=== PATIENT | male | born 1940 | race African-American/Black ===

== ENCOUNTER 2016-04-01 20:15 | Emergency (ER) | payer MEDICARE, OTHER ==
--- NOTE | 2016-04-01 20:48 | ER Document Report ---
ED Medical Screen (RME) - General Stated Complaint: BLOOD PRESSURE PROBLEM Time seen by provider: 20:47 Mode of Arrival: Ambulatory Information source: Patient Notes: 75-year-old male came to the emergency room to get his blood pressure and pulse checked. He took his blood pressure at home and it was 160/80 and his pulse was 111. 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 His no chest pain or shortness of breath. No abdominal pain. He does not feel sick. He also wants a flu shot while he is here. [facility] - Related Data Allergies/Adverse Reactions: No Known Allergies Allergy (Verified 03/05/13 09:23) Past Medical History - Past Medical History Cardiac Medical History: Reports: Hx Hypertension Endocrine Medical History: Reports: Hx Diabetes Mellitus Type 2 Renal/ Medical History: Reports: Hx Benign Prostatic Hyperplasia Musculoskeltal Medical History: Reports Hx Arthritis Psychiatric Medical History: Reports: Hx Depression Past Surgical History: Reports: Hx Cholecystectomy, Hx Orthopedic Surgery - right elbow, left knee - Immunizations Hx Diphtheria, Pertussis, Tetanus Vaccination: Yes
[2016-04-01] MEDS ORDERED: INFLUENZA ADLT QUAD (36MOS+) 2016-17 VAC 0.5 ML SYR IM ONE (22:41)
--- NOTE | 2016-04-01 22:43 | ER Document Report ---
ED General - General Chief Complaint: Blood Pressure Problem Stated Complaint: BLOOD PRESSURE PROBLEM Mode of Arrival: Ambulatory Notes: Patient is 75-year-old male presents with complaints of high blood pressure and fast heart rate. He does have a history of a sense be atrial flutter atrophia. Patient is followed by heart Dr. Britton. He says he was told the past says his heart rate is ever over 100 that he should see a doctor immediately. Tonight patient was checking his blood pressure routinely has usually does. His blood pressure is a bit elevated diagnosis heart rate was reading at 111 on his blood pressure cuff. He currently feels well. He says he does not feel like his heart is racing. He never had any headache or chest pain. Since being in the ER his blood pressure is recurrent to near normal levels and his heart rate has been in the 60s or 70s. The highest his heart rate was here was in triage and it was in the 90s. Patient looks well and has no further complaints. He does request a flu shot. He's had a flu shot in the past and never had any complications with it. No recent fevers or infections. TRAVEL OUTSIDE OF THE [place] IN LAST 30 DAYS: No - Related Data Allergies/Adverse Reactions: No Known Allergies Allergy (Verified 03/05/13 09:23) Past Medical History - General Information source: Patient - Social History Smoking Status: Unknown if Ever Smoked Frequency of alcohol use: None Drug Abuse: None Family History: Reviewed & Not Pertinent Patient has suicidal ideation: No Patient has homicidal ideation: No - Past Medical History Cardiac Medical History: Reports: Hx Hypertension Endocrine Medical History: Reports: Hx Diabetes Mellitus Type 2 Renal/ Medical History: Reports: Hx Benign Prostatic Hyperplasia. Denies: Hx Peritoneal Dialysis Musculoskeltal Medical History: Reports Hx Arthritis Psychiatric Medical History: Reports: Hx Depression Past Surgical History: Reports: Hx Cholecystectomy, Hx Orthopedic Surgery - right elbow, left knee - Immunizations Hx Diphtheria, Pertussis, Tetanus Vaccination: Yes Hx Pneumococcal Vaccination: 01/10/11 Review of Systems - Review of Systems Notes: My Normal Review Basic REVIEW OF SYSTEMS: CONSTITUTIONAL : Denies fever, chills, or sweats. Denies recent illness. EENT: Denies eye, ear, throat, or mouth pain or symptoms. Denies nasal or sinus congestion. CARDIOVASCULAR: Denies chest pain. RESPIRATORY: Denies cough, cold, or chest congestion. Denies shortness of breath, difficulty breathing, or wheezing. GASTROINTESTINAL: Denies abdominal pain. Denies nausea, vomiting, or diarrhea. Denies constipation. MUSCULOSKELETAL: Denies neck or back pain or joint pain or swelling. SKIN: Denies rash or skin lesions. NEUROLOGICAL: Denies altered mental status or loss of consciousness. Denies headache. Denies weakness or paralysis or loss of use of either side. Denies problems with gait or speech. Denies sensory or motor loss. ALL OTHER SYSTEMS REVIEWED AND NEGATIVE. Physical Exam - Vital signs Vitals: Temp Pulse Resp BP Pulse Ox 98.1 F 97 16 150/61 H 99 04/01/16 20:35 04/01/16 20:35 04/01/16 20:35 04/01/16 20:35 04/01/16 20:35 - Notes Notes: General Appearance: Well nourished, alert, cooperative, no acute distress, no obvious discomfort. Vitals: reviewed, See vital signs table. Head: no swelling or tenderness to the head Eyes: PERRL, EOMI, Conjuctiva clear Mouth: No decreasd moisture Neck: Supple, no neck tenderness, No thyromegaly Lungs: No wheezing, No rales, No rhonci, No accessory muscle use, good air exchange bilaterally. Heart: Normal rate, Regular rythm, No murmur, no rub Abdomen: Normal BS, soft, No rigidity, No abdominal tenderness, No guarding, no rebound, no abdominal masses, no organomegaly Extremities: strength 5/5 in all extremities, good pulses in all extremities, no swelling or tenderness in the extremities, no edema. Skin: warm, dry, appropriate color, no rash Neuro: speech clear, oriented x 3, normal affect, responds appropriately to questions. Cranial nerves II through XII are intact. Distal sensation intact. Patient moves all extremities without difficulty. Course - Vital Signs Vital signs: Temp Pulse Resp BP Pulse Ox 97.8 F 84 18 146/63 H 96 04/01/16 23:20 04/01/16 23:20 04/01/16 23:20 04/01/16 23:20 04/01/16 23:20 - Transfer of Care Notes: 04/02/16 05:57 Patient will be discharged home. Patient was given a flu shot. Patient has normal vital signs at this time. I feel he is safe to be discharged home. He had no concerning symptoms associated with the high blood pressure. Only reason why he noticed high blood pressure respiratory was that he was doing his routine check of his blood pressure home. He never had any chest pain. He never had a headache. I feel he is safe to be discharged home. I encouraged him to return to the ER if has palpitations, chest pain, or feels unwell. Patient agrees with plan and will be discharged home. Dictation of this chart was performed using voice recognition software; therefore, there may be some unintended grammatical errors. Discharge - Discharge Clinical Impression: Hypertension Qualifiers: Hypertension type: unspecified secondary hypertension Qualified Code(s): I15.9 - Secondary hypertension, unspecified Condition: Good Disposition: HOME, SELF-CARE Additional Instructions: HIGH BLOOD PRESSURE, NOT TREAT: When your blood pressure was taken today it was slightly elevated. Sometimes, stress or illness causes a temporary elevation of your blood pressure. We suggest that you get your blood pressure measured again during the next few days to see if this elevated blood pressure is more than a temporary abnormality. If your blood pressure is greater than 150/90 on each occasion, you must have treatment. Some simple things you can do to help are: If you have blood pressure medicine but aren't using it regularly, start taking it again. Get some aerobic exercise for at least 20 minutes on a daily basis. (See your doctor before beginning a new exercise program.) Eat a low-fat diet. Lose excess weight. Avoid salty foods and avoid adding salt to any of the foods you eat. Avoid diet pills, decongestants, "energizing" herbs, and other medicines that elevate blood pressure. If left untreated, hypertension greatly enhances your risk for developing heart disease and strokes. Please don't ignore this problem. FOLLOW-UP CARE: If you have been referred to a physician for follow-up care, call the physician s office for an appointment as you were instructed or within the next two days. If you experience worsening or a significant change in your symptoms, notify the physician immediately or return to the Emergency Department at any time for re-evaluation. Please return to ER immediately if you have a fast heart rate, chest pain, headache, fevers, vomiting, or feel weak, or feel unwell.
[2016-04-01 23:47] VITALS: BP 146/63
== END 2016-04-01 23:20 | disposition home or self-care (01) ==
LOC: ER 20:15
DX: R03.0 Elevated blood-pressure reading, without diagnosis of hypertension (principal); Z23 Encounter for immunization; I10 Essential (primary) hypertension; E11.9 Type 2 diabetes mellitus without complications; Z90.49 Acquired absence of other specified parts of digestive tract
CPT/HCPCS: 99283; 90686; G0008; 90471

== ENCOUNTER 2016-08-23 09:50 | Day surgery (SDC) | payer MEDICARE, OTHER ==
[~2016-08-23 09:50] MED LIST: DIPHENHYDRAMINE HCL 50 MG/ML VIAL ONE; EPINEPHRINE INJ 1 MG/10 ML DISP.SYRIN ONE; FLUMAZENIL INJ 0.5 MG/5 ML VIAL IV ONE; GLUCAGON,HUMAN RECOMB 1 MG INJ ONE; NALOXONE HCL INJ/PF 0.4 MG/1 ML SDV ONE; ONDANSETRON HCL INJ/PF 4 MG/2 ML SDV ONE
[2016-08-23] MEDS: MIDAZOLAM 2 MG/2 ML INJ ONE ×2 (10:44→10:48)
[2016-08-23] MEDS: FENTANYL CITRATE INJ/PF 100 MCG/2 ML AMPUL ONE ×2 (10:46→11:05)
--- NOTE | 2016-08-23 11:17 | Operative Report ---
Operative Report DATE OF SURGERY: 08/23/16 Operative Report: The risks, benefits and alternatives of the procedure including risks of bleeding, perforation requiring surgery are explained to the patient detail and informed consent was obtained. Patient was taken back to the endoscopy suite and placed in the left, lateral decubital position. Timeout was called. Conscious sedation medications are provided. Olympus videoscope was inserted into the patient's rectum. It is carefully guided all the way to the cecum. Photodocumentation was obtained. Prep was poor. It is uncertain if patient actually drank any prep. The scope was then sequentially pulled back via the rest segments of the colon including the ascending colon, hepatic flexure, transverse colon, splenic flexure, descending colon and finding to the rectosigmoid portions of the colon. Retroflexion maneuver was performed. The risks benefits and alternatives of the procedure explained to the patient in detail and informed consent is obtained. A GIF Olympus video scope was inserted into the patient's mouth and hypopharynx, the esophagus is identified intubated and insufflated, the scope was then advanced through the esophagus stomach and duodenum ,retroflexion maneuver is done, the esophagus stomach and first and second portions of the duodenum examined PREOPERATIVE DIAGNOSIS: Abdominal distention. Colorectal cancer screening. Dyspepsia POSTOPERATIVE DIAGNOSIS: Poor overall prep. Diverticulosis. Small colon polyp was removed via biopsy forceps. Internal hemorrhoids. Gastritis, duodenitis. Hiatal hernia. Biopsy obtained to rule out Helicobacter pylori OPERATION: Colonoscopy with biopsy. EGD with biopsy SURGEON: TOM WALKER ANESTHESIA: Moderate Sedation - 100 mics of fentanyl, 4 mg of Versed. Conscious sedation monitoring time 30 minutes. TISSUE REMOVED OR ALTERED: Colon polyp is removed. Gastric mucosal specimen obtained to rule out Helicobacter pylori COMPLICATIONS: None. ESTIMATED BLOOD LOSS: None. INTRAOPERATIVE FINDINGS: As described above. PROCEDURE: Patient tolerated procedure well. No immediate postprocedure complications are noted. Patient discharged in good condition Discharge date 08/23/2016. Discharge diet: Regular. Discharge activity: Regular. 2-3 week follow-up to discuss findings. 5 year surveillance colonoscopy. We will wait on biopsies. Patient is instructed to call the office or proceed to the emergency room should there be any further problems or questions.
[2016-08-23 12:17] VITALS: BP 150/65
== END 2016-08-23 12:20 | disposition home or self-care (01) ==
LOC: END 09:50
PROVIDERS: ATTEND Internal Medicine Gastroenterology
PROC: 0DB68ZX Excision of Stomach, Via Natural or Artificial Opening Endoscopic, Diagnostic (ICD-10-PCS; principal; 2016-08-23 10:00)
PROC: 0DBN8ZX Excision of Sigmoid Colon, Via Natural or Artificial Opening Endoscopic, Diagnostic (ICD-10-PCS; 2016-08-23 10:00)
DX: D64.9 Anemia, unspecified (principal); E78.00 Pure hypercholesterolemia, unspecified; I10 Essential (primary) hypertension; E11.9 Type 2 diabetes mellitus without complications; E78.5 Hyperlipidemia, unspecified; M19.90 Unspecified osteoarthritis, unspecified site; K57.30 Diverticulosis of large intestine without perforation or abscess without bleeding; K64.8 Other hemorrhoids; K44.9 Diaphragmatic hernia without obstruction or gangrene; K29.80 Duodenitis without bleeding; K63.5 Polyp of colon; Z87.891 Personal history of nicotine dependence; Z79.82 Long term (current) use of aspirin; Z79.899 Other long term (current) drug therapy; Z79.84 Long term (current) use of oral hypoglycemic drugs
CPT/HCPCS: 43239; 45380; 82962; 88305 ×2; J2250; J3010; J0171; J1200; J1610; J2310; J2405; J3490

== ENCOUNTER 2017-07-27 15:13 | Emergency (ER) | payer MEDICARE, OTHER ==
[2017-07-27 15:25] VITALS: BP 139/61
--- NOTE | 2017-07-27 15:55 | ER Document Report ---
ED Medical Screen (RME) - General Chief Complaint: Abdominal Pain Stated Complaint: STOMACH PAIN Time Seen by Provider: 07/27/17 15:51 Notes: RAPID MEDICAL EVALUATION DISCLOSURE I have seen this patient as part of a Rapid Medical Evaluation and, if applicable, placed any initially appropriate orders. The patient will be seen and fully evaluated, including a full history and physical exam, by a provider ( in Main ED or Fast Track) when a room becomes available. 76-year-old male here with several weeks now of right-sided abdominal pain intermittent with mild lightheadedness. He denies nausea vomiting but has had some softer than usual stools. He has not tried anything for the symptoms. He went to the urgent care across the street today and they told him to come here. Denies any other symptoms. EXAM No abdominal TTP TRAVEL OUTSIDE OF THE [place] IN LAST 30 DAYS: No - Related Data Allergies/Adverse Reactions: No Known Allergies Allergy (Verified 07/27/17 15:19) Past Medical History - Past Medical History Cardiac Medical History: Reports: Hx Coronary Artery Disease, Hx Hypertension Denies: Hx Heart Attack Pulmonary Medical History: Denies: Hx Asthma, Hx Bronchitis, Hx Pneumonia Neurological Medical History: Denies: Hx Cerebrovascular Accident, Hx Seizures Endocrine Medical History: Reports: Hx Diabetes Mellitus Type 2 Renal/ Medical History: Reports: Hx Benign Prostatic Hyperplasia. Denies: Hx Peritoneal Dialysis Musculoskeltal Medical History: Reports Hx Arthritis Psychiatric Medical History: Reports: Hx Depression Past Surgical History: Reports: Hx Cholecystectomy, Hx Orthopedic Surgery - right elbow, left knee - Immunizations Hx Diphtheria, Pertussis, Tetanus Vaccination: Yes Physical Exam - Vital signs Vitals: Temp Pulse Resp BP Pulse Ox 98.3 F 78 16 145/60 H 97 07/27/17 15:20 07/27/17 15:20 07/27/17 15:20 07/27/17 15:20 07/27/17 15:20 Course - Vital Signs Vital signs: Temp Pulse Resp BP Pulse Ox 98.3 F 78 16 139/61 H 97 07/27/17 15:20 07/27/17 15:20 07/27/17 15:20 07/27/17 15:24 07/27/17 15:20
[2017-07-27 16:26] LABS: ABSOLUTE EOSINOPHILS # (AUTO) 0.1 10^3/uL (0.0-0.6); ABSOLUTE LYMPHOCYTES (AUTO) 1.4 10^3/uL (0.5-4.7); ABSOLUTE MONOCYTES (AUTO) 0.4 10^3/uL (0.1-1.4); ABSOLUTE NEUT (AUTO) 2.1 10^3/uL (1.7-8.2); EOSINOPHILS % (AUTO) 1.5 % (0-6); HEMATOCRIT 39.6 % (37.9-51.0); HEMOGLOBIN 13.6 g/dL (13.5-17.0); LYMPHOCYTES % (AUTO) 36.6 % (13-45); MEAN CORPUSCULAR HEMOGLOBIN 29.9 pg (27.0-33.4); MEAN CORPUSCULAR HGB CONC 34.4 g/dL (32.0-36.0); MEAN CORPUSCULAR VOLUME 87 fl (80-97); PLATELET COUNT 205 10^3/uL (150-450); RED BLOOD COUNT 4.56 10^6/uL (4.35-5.55); RED CELL DISTRIBUTION WIDTH 14.6 % (11.5-14.0); SEGMENTED NEUTROPHILS % (AUTO) 51.9 % (42-78); TOTAL CELLS COUNTED % (AUTO) 100 %
[2017-07-27 16:31] LABS: APPEARANCE,URINE CLOUDY; BILIRUBIN,URINE NEGATIVE (NEGATIVE); GLUCOSE, URINE NEGATIVE (NEGATIVE); KETONES,URINE NEGATIVE (NEGATIVE); LEUKOCYTE ESTERASE,URINE NEGATIVE (NEGATIVE); NITRITE,URINE NEGATIVE (NEGATIVE); PROTEIN,URINE NEGATIVE (NEGATIVE); URINE SPECIFIC GRAVITY 1.006; UROBILINOGEN,URINE NEGATIVE mg/dL (<2.0)
[2017-07-27 16:34] LABS: COLOR,URINE YELLOW
[2017-07-27 16:48] LABS: ALANINE AMINOTRANSFERASE 33 U/L (21-72); ALBUMIN 4.8 g/dL (3.5-5.0); ALKALINE PHOSPHATASE 56 U/L (38-126); ANION GAP 15 (5-19); ASPARTATE AMINO TRANSFERASE 30 U/L (17-59); BILIRUBIN,DIRECT 0.3 mg/dL (0.0-0.4); BILIRUBIN,TOTAL 0.5 mg/dL (0.2-1.3); BLOOD UREA NITROGEN 18 mg/dL (7-20); CALCIUM 10.8 mg/dL (8.4-10.2); CARBON DIOXIDE 25 mmol/L (22-30); CHLORIDE 104 mmol/L (98-107); GLUCOSE 122 mg/dL (75-110); POTASSIUM 4.5 mmol/L (3.6-5.0); SODIUM 143.9 mmol/L (137-145); TOTAL PROTEIN 7.7 g/dL (6.3-8.2)
--- NOTE | 2017-07-27 18:17 | RADIOLOGY REPORT (SQ) ---
EXAM DESCRIPTION: CT ABD/PELVIS NO ORAL OR IV COMPLETED DATE/TIME: 07/27/2017 5:54 pm REASON FOR STUDY: ruq pain, right flank pain COMPARISON: None. TECHNIQUE: CT scan of the abdomen and pelvis performed without intravenous or oral contrast. Images reviewed with lung, soft tissue, and bone windows. Reconstructed coronal and sagittal MPR images revi ewed. All images stored on PACS. All CT scanners at this facility use dose modulation, iterative reconstruction, and/or weight based d osing when appropriate to reduce radiation dose to as low as reasonably achievable (ALARA). [facility]: Dose Right [facility]: CareDose [facility]: Dose Right [facility]: Teradose 4D [facility]: BuyPlayWin RADIATION DOSE: CT Rad equipment meets quality standard of care and radiation dose reduction techniq ues were employed. CTDIvol: 8.6 mGy. DLP: 455 mGy-cm.mGy. LIMITATIONS: None. FINDINGS: LOWER CHEST: No significant findings. No nodules or infiltrates. NON-CONTRASTED LIVER, SPLEEN, ADRENALS: Evaluation limited by lack of IV contrast. No identified sign ificant masses. PANCREAS: No masses. No peripancreatic inflammatory changes. GALLBLADDER: Surgically absent. RIGHT KIDNEY AND URETER: No suspicious masses. Assessment limited by lack of IV contrast. No signif icant calcifications. No hydronephrosis or hydroureter. LEFT KIDNEY AND URETER: No suspicious masses. Assessment limited by lack of IV contrast. No signifi cant calcifications. No hydronephrosis or hydroureter. AORTA AND RETROPERITONEUM: Vascular calcifications. No aneurysm. No retroperitoneal masses or adenop athy. BOWEL AND PERITONEAL CAVITY: Moderate fecal retention. No obvious masses or inflammatory changes. No free fluid. APPENDIX: Normal. PELVIS, BLADDER, AND ABDOMINAL WALL:No abnormal masses. No free fluid. Incompletely distended bladde r demonstrates circumferential bladder wall thickening. Enlarged prostate. BONES: Degenerative change without fracture or suspicious osseous lesion. OTHER: No other significant finding. IMPRESSION: NO DEFINITE URINARY TRACT CALCULI. NO SIGNIFICANT HYDRONEPHROSIS. CIRCUMFERENTIAL BLADDER WALL THICKENING COULD BE SECONDARY TO INCOMPLETE DISTENTION OR CYSTITIS. COR RELATE WITH URINALYSIS. MODERATE FECAL RETENTION. ADDITIONAL CHRONIC CHANGES ABOVE. COMMENT: Quality ID # [id number]: Final reports with documentation of one or more dose reduction techniques (e.g., Automated exposure control, adjustment of the mA and/or kV according to patient size, use of iterative reconstruction technique) TECHNICAL DOCUMENTATION: JOB ID: [id number] [employer]- All Rights Reserved Reading location - IP/workstation name: [email or web address]
--- NOTE | 2017-07-27 18:48 | ER Document Report ---
ED GI/ - General Chief Complaint: Abdominal Pain Stated Complaint: STOMACH PAIN Time Seen by Provider: 07/27/17 15:51 Mode of Arrival: Ambulatory Information source: Patient Notes: Pt is a 76 year old male who presents to the ER today for right side pain x 1 week. He states the pain comes and goes but does not radiate. Pt denies any nausea/vomiting, diarrhea, fever, chills, dysuria, hematuria, injury, lifting of heavy objects, history of kidney stones. His last bowel movement was 3 days ago and normal. TRAVEL OUTSIDE OF THE [place] IN LAST 30 DAYS: No - Related Data Allergies/Adverse Reactions: No Known Allergies Allergy (Verified 07/27/17 15:19) Past Medical History - General Information source: Patient - Social History Smoking Status: Former Smoker Chew tobacco use (# tins/day): No Frequency of alcohol use: Rare Drug Abuse: None Family History: Reviewed & Not Pertinent Patient has suicidal ideation: No Patient has homicidal ideation: No - Past Medical History Cardiac Medical History: Reports: Hx Coronary Artery Disease, Hx Hypertension Denies: Hx Heart Attack Pulmonary Medical History: Denies: Hx Asthma, Hx Bronchitis, Hx Pneumonia Neurological Medical History: Denies: Hx Cerebrovascular Accident, Hx Seizures Endocrine Medical History: Reports: Hx Diabetes Mellitus Type 2 Renal/ Medical History: Reports: Hx Benign Prostatic Hyperplasia. Denies: Hx Peritoneal Dialysis Musculoskeltal Medical History: Reports Hx Arthritis Psychiatric Medical History: Reports: Hx Depression Past Surgical History: Reports: Hx Cholecystectomy, Hx Orthopedic Surgery - right elbow, left knee - Immunizations Hx Diphtheria, Pertussis, Tetanus Vaccination: Yes Hx Pneumococcal Vaccination: 01/10/11 Review of Systems - Review of Systems Constitutional: No symptoms reported EENT: No symptoms reported Cardiovascular: No symptoms reported Respiratory: No symptoms reported Gastrointestinal: No symptoms reported Genitourinary: No symptoms reported Male Genitourinary: No symptoms reported Musculoskeletal: See HPI Skin: No symptoms reported Hematologic/Lymphatic: No symptoms reported Neurological/Psychological: No symptoms reported Physical Exam - Vital signs Vitals: Temp Pulse Resp BP Pulse Ox 98.3 F 78 16 145/60 H 97 07/27/17 15:20 07/27/17 15:20 07/27/17 15:20 07/27/17 15:20 07/27/17 15:20 - Notes Notes: PHYSICAL EXAMINATION: GENERAL: Well-appearing, smiling, and in no acute distress. HEAD: Atraumatic, normocephalic. EYES: Pupils equal round and reactive to light, extraocular movements intact, sclera anicteric, conjunctiva are normal. NECK: Normal range of motion, supple without lymphadenopathy LUNGS: CTAB and equal. No wheezes rales or rhonchi. HEART: Regular rate and rhythm without murmurs ABDOMEN: Soft, no tenderness. No guarding, no rebound BACK: no vertebral tenderness, normal ROM GI/: no CVA tenderness EXTREMITIES: Normal range of motion, no pitting edema. No cyanosis. NEUROLOGICAL: Cranial nerves grossly intact. Normal sensory/motor exams. PSYCH: Normal mood, normal affect. SKIN: Warm, Dry, normal turgor, no rashes or lesions noted Course - Re-evaluation Re-evalutation: 07/27/17 22:17 Pt is pacing room ready to leave when I walk in asking "when can I leave so I can get some food, I'm hungry!" He is in no distress, does not appear to be in pain. labwork unremarkable, no UTI, no blood in urine, CT abd/pelvis w/o contrast negative for any acute pathology except constipation. I will treat pt with miralax and have him follow up with his pcp. - Vital Signs Vital signs: Temp Pulse Resp BP Pulse Ox 98.3 F 78 16 139/61 H 97 07/27/17 15:20 07/27/17 15:20 07/27/17 15:20 07/27/17 15:24 07/27/17 15:20 - Laboratory Result Diagrams: 07/27/17 16:03 07/27/17 16:03 Laboratory results interpreted by me: 07/27/17 07/27/17 07/27/17 16:03 16:03 16:03 RDW 14.6 H Glucose 122 H Calcium 10.8 H Urine Ascorbic Acid 40 H Discharge - Discharge Clinical Impression: Constipation Qualifiers: Constipation type: unspecified constipation type Qualified Code(s): K59.00 - Constipation, unspecified Condition: Stable Disposition: HOME, SELF-CARE Additional Instructions: Return immediately for any new or worsening symptoms. Follow up with primary care provider, call tomorrow to make followup appointment. Prescriptions: Polyethylene Glycol 3350 [Miralax] 1 cap PO DAILY #527 powder
== END 2017-07-27 18:59 | disposition home or self-care (01) ==
LOC: ER 15:13
DX: K59.00 Constipation, unspecified (principal); R10.9 Unspecified abdominal pain; I25.10 Atherosclerotic heart disease of native coronary artery without angina pectoris; I10 Essential (primary) hypertension; Z90.49 Acquired absence of other specified parts of digestive tract
CPT/HCPCS: 36415; 74176; 80053; 81001; 83690; 85025; 99284

== ENCOUNTER 2017-09-17 09:10 | Day surgery (SDC) | payer MEDICARE, OTHER ==
[~2017-09-17 09:10] MED LIST changes: -DIPHENHYDRAMINE HCL 50 MG/ML VIAL ONE; -EPINEPHRINE INJ 1 MG/10 ML DISP.SYRIN ONE; -FLUMAZENIL INJ 0.5 MG/5 ML VIAL IV ONE; -GLUCAGON,HUMAN RECOMB 1 MG INJ ONE; -NALOXONE HCL INJ/PF 0.4 MG/1 ML SDV ONE; -ONDANSETRON HCL INJ/PF 4 MG/2 ML SDV ONE; +PROPOFOL INJ 200 MG/20 ML VIAL IV ONE
[2017-09-17 10:58] VITALS: BP 166/78
--- NOTE | 2017-09-17 13:06 | Operative Report ---
Operative Report DATE OF SURGERY: 09/17/17 Operative Report: The risks, benefits and alternatives of the procedure including risks of bleeding, perforation requiring surgery are explained to the patient in detail and informed consent was obtained. The patient is brought back to the endoscopy suite and placed in a left, lateral decubital position. Timeout was called. Propofol medications administered. A rectal examination is done which did not reveal any masses, tears or fissures. An Olympus videoscope was inserted into the patient's rectum. The scope was then carefully advanced all the way to the cecum. The cecum was identified by the usual anatomical landmarks including the ileocecal valve as well as the appendiceal office. Photodocumentation is obtained. Scope was then sequentially pulled back via the various segments of the colon including the ascending colon, hepatic flexure , transverse colon, splenic flexure, descending colon and finding to the rectosigmoid portions of the colon. Retroflexion maneuvers performed. PREOPERATIVE DIAGNOSIS: Change in bowel habits POSTOPERATIVE DIAGNOSIS: Right-sidedcolon Information inflammation status post biopsy rule out lymphocytic, microscopic, collagenous colitis. Internal hemorrhoids. Left and right-sided diverticulosis OPERATION: Colonoscopy with biopsy SURGEON: TOM WALKER ANESTHESIA: LMAC TISSUE REMOVED OR ALTERED: As noted above. COMPLICATIONS: None. ESTIMATED BLOOD LOSS: None. INTRAOPERATIVE FINDINGS: As noted above. PROCEDURE: Patient tolerated the procedure well. No immediate postprocedure complications are noted. Patient discharged in good condition. Discharge date 09/17/2017. Discharge diet: Regular. Discharge activity: Regular. 2-3 week follow-up to discuss findings. Patient is instructed to call the office or proceed to the emergency room should there be any further problems or questions. We will wait on pathology.
== END 2017-09-17 10:45 | disposition home or self-care (01) ==
LOC: END 09:10
PROVIDERS: ATTEND Internal Medicine Gastroenterology
DX: K52.9 Noninfective gastroenteritis and colitis, unspecified (principal); K64.8 Other hemorrhoids; K57.30 Diverticulosis of large intestine without perforation or abscess without bleeding; I10 Essential (primary) hypertension; E11.9 Type 2 diabetes mellitus without complications; E78.5 Hyperlipidemia, unspecified; M19.90 Unspecified osteoarthritis, unspecified site; Z87.891 Personal history of nicotine dependence; Z79.899 Other long term (current) drug therapy; Z79.82 Long term (current) use of aspirin; Z79.84 Long term (current) use of oral hypoglycemic drugs; Z85.46 Personal history of malignant neoplasm of prostate; I25.2 Old myocardial infarction
CPT/HCPCS: 45380; 82962; 88305 ×2; J2704; 811

== ENCOUNTER 2018-02-27 13:47 | Emergency (ER) | payer MEDICARE, OTHER ==
[2018-02-27 14:23] VITALS: BP 147/72
[2018-02-27] MEDS ORDERED: TETRACAINE HCL 0.5% OPH SOLN 4 ML OD ONE (14:53)
[2018-02-27] MEDS ORDERED: TOBRAMYCIN SULFATE/DEXAMETH OPH SUSP 2.5 ML OD ONE (15:03)
--- NOTE | 2018-02-27 15:13 | ER Document Report ---
Addendum entered and electronically signed by SARA COOK PA-C 03/08/18 14:07: Discharge - Discharge Clinical Impression: Bacterial conjunctivitis of right eye Condition: Stable Disposition: HOME, SELF-CARE Instructions: Antibiotic Therapy ([facility]), Conjunctivitis ([facility]), Eyedrop Use ([facility]) Additional Instructions: CONJUNCTIVITIS: You have an infection in your eye, commonly known as "pink eye." Conjunctivitis causes redness, mild discomfort, itching, and mattering on the eyelids. It is very contagious, so you must be careful to wash your hands after touching your face so you don't pass the infection on to others. Conjunctivitis is caused by both viruses and bacteria. It usually responds quickly to treatment with antibiotic drops. These should be placed in the eye as prescribed (usually every three to four hours while you're awake). If you wear contact lenses, don't put them in your eyes until the infection is cleared and you are no longer using the drops (unless your doctor advises you otherwise). Should you develop increasing eye pain, severe swelling, decreased vision, or fail to improve as expected, please return for re-examination. EYEDROP USE: Eyedrops are most easily applied by pulling down on the cheek just below the lower eyelid. The lower lid will pop out to form a pouch into which you can drop the medicine. A small brief sting is not unusual, especially if the eye is reddened and irritated already. Use the drops exactly as recommended. You should see the doctor at once if there is a decrease in vision, swelling of the eye, or an increase in discomfort. ANTIBIOTIC THERAPY: You have been given an antibiotic prescription. It's important that you take all the medication, unless instructed otherwise by your physician. Failure to complete the entire course can result in relapse of your condition. Common side effects of antibiotics include nausea, intestinal cramping, or diarrhea. Women may develop vaginal yeast infections, and babies can get yeast (thrush) in the mouth following the use of antibiotics. Contact your physician if you develop significant side effects from this medication. Allergy to this antibiotic can result in hives, wheezing, faintness, or itching. If symptoms of allergy occur, stop the medication and call the doctor. FOLLOW-UP CARE: If you have been referred to a physician for follow-up care, call the physicians office for an appointment as you were instructed or within the next two days. If you experience worsening or a significant change in your symptoms, notify the physician immediately or return to the Emergency Department at any time for re-evaluation. Forms: Elevated Blood Pressure Referrals: DARWIN DYE DO [ACTIVE STAFF] - Follow up as needed Original Note: ED Eye Complaint - General Chief Complaint: Eye Problem Stated Complaint: EYE IRRITATION Time Seen by Provider: 02/27/18 14:48 Mode of Arrival: Ambulatory Information source: Patient Notes: Patient is a 77-year-old male was sent to [facility] ER by the [facility] walk-in clinic for an eye exam. Patient states that he started having some discomfort in his right eye about Sunday and to where he was rubbing it occasionally Sunday morning he woke up and it was even worse by Sunday it was really red and inflamed he denies any visual problems with that but it is tearing and he is getting matting on his lashes. In the morning when he wakes up it is crusted shut. He denies any known trauma. 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 Patient has a history of hypertension and type 2 diabetes. He makes a point to tell me he was exposed to [place] for 3 years. TRAVEL OUTSIDE OF THE [place] IN LAST 30 DAYS: No - HPI Onset: Other - 4 days Eye location: Right Occurred at: Home - Pending the for Quality of pain: Achy, Other Severity: Moderate Pain Level: 3 - 1 Exposure: Conjunctivitis. No: Projectile Contact lenses worn: No Associated symptoms: Itching, Matting, Eyelid swelling - Related Data Allergies/Adverse Reactions: No Known Allergies Allergy (Verified 02/27/18 13:49) Past Medical History - General Information source: Patient - Social History Smoking Status: Never Smoker Cigarette use (# per day): No Chew tobacco use (# tins/day): No Smoking Education Provided: No Frequency of alcohol use: Occasional Drug Abuse: None Family History: Reviewed & Not Pertinent Patient has suicidal ideation: No Patient has homicidal ideation: No - Past Medical History Cardiac Medical History: Reports: Hx Coronary Artery Disease, Hx Hypertension Denies: Hx Heart Attack Pulmonary Medical History: Denies: Hx Asthma, Hx Bronchitis, Hx Pneumonia Neurological Medical History: Denies: Hx Cerebrovascular Accident, Hx Seizures Endocrine Medical History: Reports: Hx Diabetes Mellitus Type 2 Renal/ Medical History: Reports: Hx Benign Prostatic Hyperplasia. Denies: Hx Peritoneal Dialysis Musculoskeletal Medical History: Reports Hx Arthritis Psychiatric Medical History: Reports: Hx Depression Past Surgical History: Reports: Hx Cholecystectomy, Hx Orthopedic Surgery - right elbow, left knee - Immunizations Hx Diphtheria, Pertussis, Tetanus Vaccination: Yes Hx Pneumococcal Vaccination: 01/10/11 Review of Systems - Review of Systems Constitutional: No symptoms reported EENT: See HPI, Eye discharge Cardiovascular: No symptoms reported Respiratory: No symptoms reported Gastrointestinal: No symptoms reported Genitourinary: No symptoms reported Male Genitourinary: No symptoms reported Musculoskeletal: No symptoms reported Skin: No symptoms reported Hematologic/Lymphatic: No symptoms reported Neurological/Psychological: No symptoms reported -: Yes All other systems reviewed and negative Physical Exam - Vital signs Vitals: Temp Pulse Resp BP Pulse Ox 98.5 F 56 L 16 147/72 H 98 02/27/18 14:22 02/27/18 14:22 02/27/18 14:22 02/27/18 14:22 02/27/18 14:22 Interpretation: Hypertensive, Bradycardic - Notes Notes: PHYSICAL EXAMINATION: GENERAL: Well-appearing, well-nourished and in no acute distress. HEAD: Atraumatic, normocephalic. EYES: Pupils equal round and reactive to light, extraocular movements intact. Examination of patient's right eye also shows that he has injected conjunctiva with tearing. Fluorescein stain showed no signs of uptake. No corneal abrasion noted. Presentation is of bacterial conjunctivitis ENT: Nares patent, oropharynx clear without exudates. Moist mucous membranes. NECK: Normal range of motion, supple without lymphadenopathy LUNGS: Breath sounds clear to auscultation bilaterally and equal. No wheezes rales or rhonchi. HEART: Bradycardic rate and rhythm without murmurs Musculoskeletal: Normal range of motion, no pitting or edema. No cyanosis. NEUROLOGICAL: Normal speech, normal gait. Normal sensory, motor exams PSYCH: Normal mood, normal affect. SKIN: Warm, Dry, normal turgor, no rashes or lesions noted. Course - Re-evaluation Re-evalutation: 02/27/18 15:16 [facility] secondary to the fact that he did not have a Fischer lamp. There is no history of trauma Fischer lamp exam with fluorescein stain was negative for any type of abrasion or or forcing uptake patient has no visual changes and this is consistent with findings with conjunctivitis bacterial nature. - Vital Signs Vital signs: Temp Pulse Resp BP Pulse Ox 98.5 F 56 L 16 147/72 H 98 02/27/18 14:22 02/27/18 14:22 02/27/18 14:22 02/27/18 14:22 02/27/18 14:22 Discharge - Discharge Condition: Stable Disposition: HOME, SELF-CARE Instructions: Antibiotic Therapy ([facility]), Conjunctivitis ([facility]), Eyedrop Use ([facility]) Additional Instructions: CONJUNCTIVITIS: You have an infection in your eye, commonly known as "pink eye." Conjunctivitis causes redness, mild discomfort, itching, and mattering on the eyelids. It is very contagious, so you must be careful to wash your hands after touching your face so you don't pass the infection on to others. Conjunctivitis is caused by both viruses and bacteria. It usually responds quickly to treatment with antibiotic drops. These should be placed in the eye as prescribed (usually every three to four hours while you're awake). If you wear contact lenses, don't put them in your eyes until the infection is cleared and you are no longer using the drops (unless your doctor advises you otherwise). Should you develop increasing eye pain, severe swelling, decreased vision, or fail to improve as expected, please return for re-examination. EYEDROP USE: Eyedrops are most easily applied by pulling down on the cheek just below the lower eyelid. The lower lid will pop out to form a pouch into which you can drop the medicine. A small brief sting is not unusual, especially if the eye is reddened and irritated already. Use the drops exactly as recommended. You should see the doctor at once if there is a decrease in vision, swelling of the eye, or an increase in discomfort. ANTIBIOTIC THERAPY: You have been given an antibiotic prescription. It's important that you take all the medication, unless instructed otherwise by your physician. Failure to complete the entire course can result in relapse of your condition. Common side effects of antibiotics include nausea, intestinal cramping, or diarrhea. Women may develop vaginal yeast infections, and babies can get yeast (thrush) in the mouth following the use of antibiotics. Contact your physician if you develop significant side effects from this medication. Allergy to this antibiotic can result in hives, wheezing, faintness, or itching. If symptoms of allergy occur, stop the medication and call the doctor. FOLLOW-UP CARE: If you have been referred to a physician for follow-up care, call the physician s office for an appointment as you were instructed or within the next two days. If you experience worsening or a significant change in your symptoms, notify the physician immediately or return to the Emergency Department at any time for re- evaluation. Forms: Elevated Blood Pressure Referrals: DARWIN DYE DO [ACTIVE STAFF] - Follow up as needed
== END 2018-02-27 15:26 | disposition home or self-care (01) ==
LOC: ER 13:47
DX: H10.9 Unspecified conjunctivitis (principal); B96.89 Other specified bacterial agents as the cause of diseases classified elsewhere; E11.9 Type 2 diabetes mellitus without complications; I10 Essential (primary) hypertension; I25.10 Atherosclerotic heart disease of native coronary artery without angina pectoris
CPT/HCPCS: 99282; J3490 ×2

== ENCOUNTER 2019-06-13 15:22 | Observation (INO) | payer OTHER, MEDICARE ==
--- NOTE | 2019-06-13 15:39 | ER Document Report ---
ED Medical Screen (RME) - General Chief Complaint: Chest Pain Stated Complaint: POSSIBLE BLOOD PRESSURE ISSUES Time Seen by Provider: 06/13/19 15:32 Primary Care Provider: CALLUM ALMEIDA [Primary Care Provider] - Follow up as needed Mode of Arrival: Ambulatory Information source: Patient Notes: 78-year-old male with history of high blood pressure, diabetes prostate cancer presents emergency department with left-sided chest pain started after he went for a walk. Patient denies history of cardiac disease. 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 Denies history of [place]. No other complaints such as fever vomiting diarrhea. Patient was instructed on aspirin for chest pain and reports he has aspirin at home. I have greeted and performed a rapid initial assessment of this patient. A comprehensive ED assessment and evaluation of the patient, analysis of test results and completion of the medical decision making process will be conducted by additional ED providers. TRAVEL OUTSIDE OF THE [place] IN LAST 30 DAYS: No - Related Data Allergies/Adverse Reactions: No Known Allergies Allergy (Verified 06/13/19 15:37) Past Medical History - Past Medical History Cardiac Medical History: Reports: Hx Coronary Artery Disease, Hx Hypertension Denies: Hx Heart Attack Pulmonary Medical History: Denies: Hx Asthma, Hx Bronchitis, Hx Pneumonia Neurological Medical History: Denies: Hx Cerebrovascular Accident, Hx Seizures Endocrine Medical History: Reports: Hx Diabetes Mellitus Type 2 Renal/ Medical History: Reports: Hx Benign Prostatic Hyperplasia. Denies: Hx Peritoneal Dialysis Musculoskeltal Medical History: Reports Hx Arthritis Psychiatric Medical History: Reports: Hx Depression Past Surgical History: Reports: Hx Cholecystectomy, Hx Orthopedic Surgery - right elbow, left knee - Immunizations Hx Diphtheria, Pertussis, Tetanus Vaccination: Yes Physical Exam - Vital signs Vitals: Temp Pulse Resp BP Pulse Ox 97.8 F 58 L 14 120/58 L 98 06/13/19 15:27 06/13/19 15:27 06/13/19 15:27 06/13/19 15:27 06/13/19 15:27 Course - Vital Signs Vital signs: Temp Pulse Resp BP Pulse Ox 97.8 F 58 L 14 120/58 L 98 06/13/19 15:29 06/13/19 15:29 06/13/19 15:29 06/13/19 15:29 06/13/19 15:29 Doctor's Discharge - Discharge [facility]errals: [facility] [[facility] - Follow up as needed
[2019-06-13 16:06] LABS: ABSOLUTE EOSINOPHILS # (AUTO) 0.1 10^3/uL (0.0-0.6); ABSOLUTE LYMPHOCYTES (AUTO) 1.2 10^3/uL (0.5-4.7); ABSOLUTE MONOCYTES (AUTO) 0.4 10^3/uL (0.1-1.4); ABSOLUTE NEUT (AUTO) 2.3 10^3/uL (1.7-8.2); BASOPHILS % (AUTO) 0.6 % (0-2); EOSINOPHILS % (AUTO) 1.7 % (0-6); HEMATOCRIT 35.4 % (37.9-51.0); HEMOGLOBIN 12.8 g/dL (13.5-17.0); LYMPHOCYTES % (AUTO) 30.7 % (13-45); MEAN CORPUSCULAR HEMOGLOBIN 31.6 pg (27.0-33.4); MEAN CORPUSCULAR HGB CONC 36.2 g/dL (32.0-36.0); MEAN CORPUSCULAR VOLUME 87 fl (80-97); MONOCYTES % (AUTO) 9.1 % (3-13); PLATELET COUNT 220 10^3/uL (150-450); RED BLOOD COUNT 4.05 10^6/uL (4.35-5.55); RED CELL DISTRIBUTION WIDTH 13.3 % (11.5-14.0); SEGMENTED NEUTROPHILS % (AUTO) 57.9 % (42-78); TOTAL CELLS COUNTED % (AUTO) 100 %; WHITE BLOOD COUNT 3.9 10^3/uL (4.0-10.5)
--- NOTE | 2019-06-13 16:10 | RADIOLOGY REPORT (SQ) ---
EXAM DESCRIPTION: CHEST SINGLE VIEW IMAGES COMPLETED DATE/TIME: 06/13/2019 4:02 pm REASON FOR STUDY: chest pain COMPARISON: 03/05/2013 EXAM PARAMETERS: NUMBER OF VIEWS: One view. TECHNIQUE: Single frontal radiographic view of the chest acquired. RADIATION DOSE: NA LIMITATIONS: None. FINDINGS: LUNGS AND PLEURA: No opacities, masses or pneumothorax. No pleural effusion. MEDIASTINUM AND HILAR STRUCTURES: No masses. Contour normal. HEART AND VASCULAR STRUCTURES: Heart normal in size. Normal vasculature. BONES: No acute findings. HARDWARE: None in the chest. OTHER: No other significant finding. IMPRESSION: NO ACUTE RADIOGRAPHIC FINDING IN THE CHEST. TECHNICAL DOCUMENTATION: JOB ID: [id number] 2010 [employer]- All Rights Reserved Reading location - IP/workstation name: [email or web address]
--- NOTE | 2019-06-13 16:18 | EKG REPORT ---
SEVERITY:- NORMAL ECG - SINUS RHYTHM : Confirmed by: Joseph Herzog 13-Jun-2019 16:18:04
[2019-06-13 16:24] LABS: ALBUMIN 4.6 g/dL (3.5-5.0); ALKALINE PHOSPHATASE 57 U/L (38-126); ANION GAP 7 (5-19); ASPARTATE AMINO TRANSFERASE 29 U/L (17-59); BILIRUBIN,DIRECT 0.1 mg/dL (0.0-0.4); BILIRUBIN,TOTAL 0.5 mg/dL (0.2-1.3); BLOOD UREA NITROGEN 15 mg/dL (7-20); CALCIUM 10.1 mg/dL (8.4-10.2); CARBON DIOXIDE 27 mmol/L (22-30); CHLORIDE 101 mmol/L (98-107); GLUCOSE 111 mg/dL (75-110); POTASSIUM 5.4 mmol/L (3.6-5.0); TOTAL PROTEIN 7.9 g/dL (6.3-8.2)
[2019-06-13] MEDS ORDERED: INSULIN REG, HUMAN 100 UNIT/ML 3 ML VIAL (PYX) IV ONE (18:20)
[2019-06-13] MEDS ORDERED: DEXTROSE 50%-WATER 25 GM/50 ML DISP.SYRIN IV ONE (18:20)
[2019-06-13] MEDS ORDERED: CALCIUM GLUCONATE 1000 MG/10 ML INJ IV ONE (18:20)
[2019-06-13] MEDS ORDERED: NORMAL SALINE 1000 ML 1,000 ML IV ONE (18:22)
--- NOTE | 2019-06-13 18:28 | ER Document Report ---
ED General - General Chief Complaint: Chest Pain Stated Complaint: POSSIBLE BLOOD PRESSURE ISSUES Time Seen by Provider: 06/13/19 15:32 Primary Care Provider: JUAN PABLO,CALLUM [Primary Care Provider] - Follow up as needed Mode of Arrival: Ambulatory Notes: Patient is a 78-year-old -[place] male with a past medical history of diabetes, "heart murmur", hyperlipidemia and hypertension who presents to the emergency department with a chief complaint of episode of chest pain that began prior to arrival. Patient reports that he was walking about 3 miles. States that towards the end of his walk he had a sudden sharp pin-like chest pain to the left upper chest wall near the shoulder. He states it was just as if someone poked him with a pen and then went away. He states he has had no fur ther episodes. He felt this should be evaluated further so he came to the emergency department. He denies any cardiac issues otherwise. He reports that he sees his student nurse every 6 months for routine evaluation but is never had a SC or has any CAD history. Reports his diabetes is well controlled metformin. He is a former smoker many decades past. He denies any shortness of breath. He is currently asymptomatic. Patient denies any history of lower extremity pain or swelling. No hemoptysis or cough. No history of DVT or PE. TRAVEL OUTSIDE OF THE [place] IN LAST 30 DAYS: No - Related Data Allergies/Adverse Reactions: No Known Allergies Allergy (Verified 06/13/19 15:37) Past Medical History - General Information source: Patient - Social History Smoking Status: Never Smoker Family History: Reviewed & Not Pertinent Patient has suicidal ideation: No Patient has homicidal ideation: No - Past Medical History Cardiac Medical History: Reports: Hx Coronary Artery Disease, Hx Hypertension Denies: Hx Heart Attack Pulmonary Medical History: Denies: Hx Asthma, Hx Bronchitis, Hx Pneumonia Neurological Medical History: Denies: Hx Cerebrovascular Accident, Hx Seizures Endocrine Medical History: Reports: Hx Diabetes Mellitus Type 2 Renal/ Medical History: Reports: Hx Benign Prostatic Hyperplasia. Denies: Hx Peritoneal Dialysis Musculoskeletal Medical History: Reports Hx Arthritis Psychiatric Medical History: Reports: Hx Depression Past Surgical History: Reports: Hx Cholecystectomy, Hx Orthopedic Surgery - right elbow, left knee - Immunizations Hx Diphtheria, Pertussis, Tetanus Vaccination: Yes Hx Pneumococcal Vaccination: 01/10/11 Review of Systems - Review of Systems Cardiovascular: Chest pain -: Yes All other systems reviewed and negative Physical Exam - Vital signs Vitals: Temp Pulse Resp BP Pulse Ox 97.8 F 58 L 14 120/58 L 98 06/13/19 15:27 06/13/19 15:27 06/13/19 15:27 06/13/19 15:27 06/13/19 15:27 - General General appearance: Appears well, Alert In distress: None - HEENT Head: Normocephalic, Atraumatic Eyes: Normal Conjunctiva: Normal Extraocular movements intact: Yes Eyelashes: Normal Pupils: PERRL Ears: Normal External canal: Normal Tympanic membrane: Normal Nasal: Normal Mouth/Lips: Normal Mucous membranes: Moist Pharynx: Normal Neck: Normal - Respiratory Respiratory status: No respiratory distress Chest status: Nontender Breath sounds: Normal Chest palpation: Normal - Cardiovascular Rhythm: Regular Heart sounds: Normal auscultation Murmur: Yes - Neurological Neuro grossly intact: Yes Cognition: Normal Orientation: AAOx4 Angela Coma Scale Eye Opening: Spontaneous Angela Coma Scale Verbal: Oriented [place] Coma Scale Motor: Obeys Commands Angela Coma Scale Total: 15 Speech: Normal Motor strength normal: LUE, RUE, LLE, RLE Sensory: Normal - Psychological Associated symptoms: Normal affect, Normal mood - Skin Skin Temperature: Warm Skin Moisture: Dry Skin Color: Normal Course - Re-evaluation Re-evalutation: 06/13/19 18:27 Heart score of 3, low risk. Initial troponin negative. Initial EKG unremarkable for STEMI or significant ischemia. Pending repeat troponin and EKG. He does have an elevated potassium. The patient reports that this is in relation to heavy potassium intake in his diet. He states that he eats bananas regularly. We will give him some insulin, dextrose, IV normal saline and calcium gluconate for his potassium and repeat this level. 06/13/19 20:11 Patient is repeat EKG showing some T wave inversions in the lateral leads along with the ongoing LVH. This is different from his prior EKG. His troponin did increase as well from 0.012-0.018, although still in the negative range it did trend upward. The patient has had no episodes of chest pain here. His heart score given his history of smoking, diabetes, hypertension, hyperlipidemia and increasing troponin and changing on EKG more consistent with a moderate to high risk. I called and spoke with cardiology, Dr. Mullen who also reviewed the patient's lab results and EKGs. He recommended admission overnight for trending of patient's troponins, cardiac monitoring and advised he will consult on the patient in the morning. I called and spoke with the hospitalist, Dr. Daniel at this time. He will admit the patient to telemetry obs. Patient is stable for admission at this time. - Vital Signs Vital signs: Temp Pulse Resp BP Pulse Ox 97.8 F 58 L 18 117/43 L 100 06/13/19 15:29 06/13/19 15:29 06/13/19 19:01 06/13/19 19:01 06/13/19 19:01 - Laboratory Result Diagrams: 06/13/19 15:50 06/13/19 15:50 Laboratory results interpreted by me: 06/13/19 06/13/19 15:50 15:50 WBC 3.9 L RBC 4.05 L Hgb 12.8 L Hct 35.4 L MCHC 36.2 H Sodium 134.6 L Potassium 5.4 H Glucose 111 H Discharge - Discharge Clinical Impression: Abnormal EKG, Elevated troponin Chest pain Qualifiers: Chest pain type: unspecified Qualified Code(s): R07.9 - Chest pain, unspecified Condition: Stable Disposition: ADMITTED OBSERVATION Admitting Provider: María (Hospitalist) Unit Admitted: Telemetry [facility]errals: [facility] [Primary [facility] - Follow up as needed
[2019-06-13 20:54] LABS: ANION GAP 6 (5-19); BLOOD UREA NITROGEN 15 mg/dL (7-20); CARBON DIOXIDE 26 mmol/L (22-30); CHLORIDE 104 mmol/L (98-107); GLUCOSE 113 mg/dL (75-110); POTASSIUM 5.3 mmol/L (3.6-5.0)
[2019-06-13] MEDS ORDERED: MAG HYDROX/AL HYDROX/SIMETH SUSP 30 ML UDCUP PO PRN (21:14)
[2019-06-13] MEDS ORDERED: MAGNESIUM HYDROXIDE SUSP 30 ML UDCUP PO PRN (21:14)
[2019-06-13] MEDS ORDERED: ONDANSETRON HCL INJ/PF 4 MG/2 ML SDV IV PRN (21:14)
[2019-06-13] MEDS ORDERED: DEXTROSE 50%-WATER 25 GM/50 ML DISP.SYRIN IV PRN ×2 (21:19)
[2019-06-13] MEDS ORDERED: GLUCAGON,HUMAN RECOMB 1 MG INJ IM PRN (21:19)
[2019-06-13] MEDS ORDERED: HYDRALAZINE HCL INJ/PF 20 MG/1 ML SDV IV PRN (21:19)
[2019-06-13] MEDS ORDERED: DEXTROSE 40% GEL 15 GM TUBE PO PRN ×2 (21:19)
[2019-06-13] MEDS ORDERED: ACETAMINOPHEN 325 MG TABLET PO PRN (21:19)
[2019-06-13] MEDS ORDERED: MORPHINE SULFATE 10 MG/ML INJ IV PRN (21:55)
[2019-06-13] MEDS: HEPARIN SOD (PORCINE) 5,000 UNIT/ML 1 ML VIAL SUBCUT SCH (21:59)
[2019-06-13] MEDS: INSULIN REG, HUMAN 100 UNIT/ML 3 ML VIAL (PYX) SUBCUT SCH (22:01)
[2019-06-13 22:24] LABS: CREATINE KINASE MB 0.95 ng/mL (<4.55)
[2019-06-13 22:25] LABS: TROPONIN I < 0.012 ng/mL
--- NOTE | 2019-06-14 00:08 | PDOC H&P ---
History of Present Illness Admission Date/PCP: 06/13/19 20:17 [facility] Patient complains of: Chest pain History of Present Illness: VALERIE MARTINEZ SR is a 78 year old male who presented to the emergency room with acute chest pain. Patient admits that as he was completing a 3 mile walk this afternoon, he experienced a sudden sharp pain in his left upper chest, without radiation, lasting for less than 1 second and resolving spontaneously without further recurrence. He denies any associated or accompanying signs and symptoms. He denies prior similar episodes. He has not identified any aggravating or ameliorating factors for his chest pain. In the emergency room he was found to have an unremarkable evaluation but at the suggestion of Dr. Mullen patient is admitted observation status for further evaluation. Past Medical History Cardiac Medical History: Reports: Hyperlipidema, Hypertension, Heart Murmur Denies: Atrial Fibrillation, Congestive Heart Failure, Coronary Artery Disease, Myocardial Infarction Pulmonary Medical History: Denies: Asthma, Bronchitis, Chronic Obstructive Pulmonary Disease (COPD), [place] EENT Medical History: Denies: Cataracts, Ears Neurological Medical History: Denies: Hemorrhagic CVA, Ischemic CVA, Seizures Endocrine Medical History: Reports: Diabetes Mellitus Type 2 Denies: Diabetes Mellitus Type 1, Hyperthyroidism, Hypothyroidism, Obesity Renal/ Medical History: Reports: Other - Prostate cancer, erectile dysfunction Denies: Chronic Kidney Disease, Nephrolithiasis Malignancy Medical History: Reports: Other - Prostate cancer GI Medical History: Denies: Cirrhosis, Crohn's Disease, Hepatitis, Ulcerative Colitis Musculoskeltal Medical History: Reports: Arthritis, Gout Skin Medical History: Denies: Eczema, Psoriasis Psychiatric Medical History: Reports: Depression Denies: Alcohol Dependency, Substance Abuse, Tobacco Dependency Traumatic Medical History: Reports: None Hematology: Reports: Anemia Denies: Bleeding Tendencies Infectious Medical History: Reports: None Past Surgical History Past Surgical History: Reports: Cholecystectomy, Orthopedic Surgery - right elbow, left knee, Other - EGDs and colonoscopies Social History Information Source: Patient Lives with: Spouse/Significant other Smoking Status: Former Smoker Electronic Cigarette use?: No Frequency of Alcohol Use: None Hx Recreational Drug Use: No Drugs: None Hx Prescription Drug Abuse: No - Advance Directive Resuscitation Status: Full Code Surrogate healthcare decision maker:: Bernie Bryan Family History Family History: DM, Other - Alzheimer's disease, kidney disease. denies: CAD, Hypertension, Malignancy Parental Family History Reviewed: Yes Children Family History Reviewed: No Sibling(s) Family History Reviewed.: Yes Medication/Allergy Home Medications: Allopurinol [Zyloprim 300 mg Tablet] 100 mg PO DAILY 08/24/11 Aspirin [Ecotrin 81 mg EC Tablet] 81 mg PO DAILY 08/24/11 Metformin HCl [Glucophage 1000 mg Tablet] 500 mg PO BID 08/24/11 Valsartan [Diovan 80 mg Tablet] 320 mg PO DAILY 08/24/11 Atorvastatin Calcium [Lipitor 40 mg Tablet] 1.5 tab PO QHS 03/05/13 Nifedipine [Nifedipine ER] 60 mg PO DAILY 03/05/13 Multivitamin [Multivitamins] 1 tab PO DAILY 08/22/16 Cholecalciferol (Vitamin D3) [Vitamin D3] 1,000 unit PO DAILY 08/23/16 Tadalafil [Cialis] 5 mg PO ASDIR PRN 08/23/16 Tamsulosin HCl 0.4 mg PO DAILY 08/23/16 Vitamin B Complex 1 each PO DAILY 08/23/16 Methocarbamol [Robaxin 500 mg Tablet] 500 mg PO TID PRN 06/13/19 Omeprazole 20 mg PO DAILY 06/13/19 Allergies/Adverse Reactions: No Known Allergies Allergy (Verified 06/13/19 15:37) Review of Systems Constitutional: ABSENT: chills, fever(s) Eyes: ABSENT: visual disturbances, other - Eye pain Ears: ABSENT: hearing changes, other - Ear pain Nose, Mouth, and Throat: ABSENT: headache(s), sore throat Cardiovascular: PRESENT: as per HPI, chest pain. ABSENT: dyspnea on exertion, edema, orthropnea, palpitations Respiratory: ABSENT: cough, dyspnea, hemoptysis Gastrointestinal: ABSENT: abdominal pain, constipation, diarrhea, nausea, vomiting Genitourinary: ABSENT: dysuria, hematuria Musculoskeletal: ABSENT: back pain, joint swelling, muscle weakness Integumentary: ABSENT: pruritus, rash Neurological: ABSENT: confusion, convulsions, focal weakness, memory loss, syncope Psychiatric: ABSENT: anxiety, depression Endocrine: ABSENT: cold intolerance, heat intolerance, polydipsia, polyphagia, polyuria Hematologic/Lymphatic: ABSENT: easy bleeding, easy bruising Allergic/Immunologic: ABSENT: seasonal rhinorrhea Physical Exam Vital Signs: Temp Pulse Resp BP Pulse Ox 97.8 F 58 L 18 117/43 L 100 06/13/19 15:29 06/13/19 15:29 06/13/19 19:01 06/13/19 19:01 06/13/19 19:01 Intake & Output 06/11/19 06/12/19 06/13/19 23:59 23:59 23:59 Intake Total 1000 Balance 1000 Weight 74.9 kg General appearance: PRESENT: no acute distress, cooperative Head exam: PRESENT: atraumatic, normocephalic Eye exam: ABSENT: conjunctival injection, scleral icterus Ear exam: PRESENT: normal external ear exam. ABSENT: bleeding, drainage Mouth exam: PRESENT: dry mucosa, neck supple Neck exam: ABSENT: thyromegaly, tracheal deviation Respiratory exam: PRESENT: clear to auscultation judy, symmetrical, unlabored Cardiovascular exam: PRESENT: RRR. ABSENT: clicks, gallop, rubs Pulses: PRESENT: normal radial pulses, normal dorsalis pedis pul Vascular exam: PRESENT: normal capillary refill. ABSENT: pallor GI/Abdominal exam: PRESENT: normal bowel sounds, soft Rectal exam: PRESENT: deferred Extremities exam: ABSENT: joint swelling, pedal edema Musculoskeletal exam: ABSENT: deformity, dislocation Neurological exam: PRESENT: alert, oriented to person, oriented to place, oriented to time, oriented to situation, CN II-XII grossly intact. ABSENT: motor sensory deficit Psychiatric exam: PRESENT: appropriate affect, normal mood Skin exam: PRESENT: dry, intact, warm. ABSENT: jaundice, rash, urticaria Results Laboratory Results: 06/13/19 15:50 06/13/19 18:50 06/13/19 06/13/19 06/13/19 15:50 15:50 18:50 WBC 3.9 L RBC 4.05 L Hgb 12.8 L Hct 35.4 L MCV 87 MCH 31.6 MCHC 36.2 H RDW 13.3 Plt Count 220 Seg Neutrophils % 57.9 Sodium 134.6 L 135.7 L Potassium 5.4 H 5.3 H Chloride 101 104 Carbon Dioxide 27 26 Anion Gap 7 6 BUN 15 15 Creatinine 0.92 0.89 Est GFR ( Amer) > 60 > 60 Glucose 111 H 113 H Calcium 10.1 10.0 Total Bilirubin 0.5 AST 29 Alkaline Phosphatase 57 Total Protein 7.9 Albumin 4.6 06/13/19 06/13/19 15:50 18:50 Troponin I < 0.012 0.018 Impressions: Chest X-Ray 06/13/19 15:38 IMPRESSION: NO ACUTE RADIOGRAPHIC FINDING IN THE CHEST. Assessment and Plan - Diagnosis (1) Chest pain Qualifiers: Chest pain type: unspecified Qualified Code(s): R07.9 - Chest pain, unspecified Is this a current diagnosis for this admission?: Yes (2) Hypertension Qualifiers: Hypertension type: essential hypertension Qualified Code(s): I10 - Essential (primary) hypertension Is this a current diagnosis for this admission?: Yes (3) Hyperlipidemia Qualifiers: Hyperlipidemia type: unspecified Qualified Code(s): E78.5 - Hyperlipidemia, unspecified Is this a current diagnosis for this admission?: Yes (4) Diabetes mellitus type 2 in nonobese Is this a current diagnosis for this admission?: Yes - Plan Summary Summary: Patient will be admitted to observation status on the medical floor in a telemetry bed. He will receive routine supportive and symptomatic cares. Dr. Mullen will be consulted for cardiac evaluation. Serial cardiac enzymes will be performed. Patient will be continued on his usual home medications, as appropriate, as soon as his medication list can be verified and reconciled. Before meals and at bedtime Accu-Cheks to be performed with sliding scale insulin used to cover hyperglycemia and a hypoglycemic protocol in place. A cardiac and diabetic restricted diet will be provided. Patient will use morphine sulfate 2 mg IV every 2 hours as needed for chest pain. - Time Time Spent with patient: 15-24 minutes Medications reviewed and adjusted accordingly: Yes Anticipated discharge: Home - Inpatient Certification Based on my medical assessment, after consideration of the patient's comorbidities, presenting symptoms, or acuity I expect that the services needed warrant INPATIENT care.: No I certify that my determination is in accordance with my understanding of Medicare's requirements for reasonable and necessary INPATIENT services [42 CFR 412.3e].: No
[2019-06-14 04:52] LABS: CREATINE KINASE MB 0.88 ng/mL (<4.55)
[2019-06-14 04:57] LABS: TROPONIN I < 0.012 ng/mL
[2019-06-14] MEDS: HEPARIN SOD (PORCINE) 5,000 UNIT/ML 1 ML VIAL SUBCUT SCH (05:58)
[2019-06-14] MEDS ORDERED: PANTOPRAZOLE SODIUM 40 MG TABLET.DR PO SCH (06:00)
--- NOTE | 2019-06-14 07:24 | PDOC CONSULTATION ---
Consultation Consult Date: 06/14/19 Attending physician:: PAYAL DAVIS Provider Consulted: MACKENZIE COVINGTON Consult reason:: Chest pain. History of Present Illness Admission Date/PCP: 06/13/19 20:17 [facility] Patient complains of: The patient has no cardiac complaints this morning. History of Present Illness: VALERIE BREWSTER SR is a 78 year old male with history of type II diabetes, cardiac murmur, hyperlipidemia and hypertension who is consulted to our service for evaluation of chest pain. The patient presented to the emergency room on complaining of chest pain. He has been walking for approximately 3 miles when he developed a very sharp pain localized to the left upper chest lasting for a few seconds, with spontaneous resolution and no other associated symptoms. He specifically denied shortness of breath, palpitations, diaphoresis, syncope and presyncope. This morning the patient is resting comfortably in bed and without any cardiovascular complaints. He is followed by Dr. Stack, apartment maintenance worker at [facility], for his history of cardiac murmur and hypertension. Physical exam on 06/14/2019: GENERAL: Pleasant and conversational. Oriented x3 with normal mood. Not in acute distress. Well groomed and well developed. HEENT: Normocephalic, atraumatic. Pupils equal. Sclerae anicteric. Oropharynx moist. NECK: No JVD. No carotid bruits. LUNGS: Clear to auscultation bilaterally. Normal respiratory effort without the use of accessory muscles or intercostal retractions. CARDIOVASCULAR: Regular rate and rhythm, normal S1 and S2 without murmurs, rubs, or gallops. PMI not displaced. ABDOMEN: No masses or tenderness to palpation. No bruit. No splenomegaly or hepatomegaly. No abdominal aorta bruit noted. EXTREMITIES: No edema, no cyanosis, no clubbing. +2 pulses femoral and pedal pulses bilaterally. SKIN: No lesions or rashes. MUSCULOSKELETAL: No chest tenderness to palpation. NEUROLOGIC: Nonfocal. No gross sensory or motor deficits bilateral upper or lower extremities. Past Medical History Cardiac Medical History: Reports: Hyperlipidema, Hypertension, Heart Murmur Denies: Atrial Fibrillation, Congestive Heart Failure, Coronary Artery Disease, Myocardial Infarction Pulmonary Medical History: Denies: Asthma, Bronchitis, Chronic Obstructive Pulmonary Disease (COPD), Pneumonia EENT Medical History: Denies: Cataracts, Ears Neurological Medical History: Denies: Hemorrhagic CVA, Ischemic CVA, Seizures Endocrine Medical History: Reports: Diabetes Mellitus Type 2 Denies: Diabetes Mellitus Type 1, Hyperthyroidism, Hypothyroidism, Obesity Renal/ Medical History: Reports: Other - Prostate cancer, erectile dysfunction Denies: Chronic Kidney Disease, Nephrolithiasis Malignancy Medical History: Reports: Other - Prostate cancer GI Medical History: Denies: Cirrhosis, Crohn's Disease, Hepatitis, Ulcerative Colitis Musculoskeltal Medical History: Reports: Arthritis, Gout Skin Medical History: Denies: Eczema, Psoriasis Psychiatric Medical History: Reports: Depression Denies: Alcohol Dependency, Substance Abuse, Tobacco Dependency Traumatic Medical History: Reports: None Hematology: Reports: Anemia Denies: Bleeding Tendencies Infectious Medical History: Reports: None Past Surgical History Past Surgical History: Reports: Cholecystectomy, Orthopedic Surgery - right elbow, left knee, Other - EGDs and colonoscopies Social History Lives with: Spouse/Significant other Smoking Status: Former Smoker Electronic Cigarette use?: No Frequency of Alcohol Use: None Hx Recreational Drug Use: No Drugs: None Hx Prescription Drug Abuse: No - Advance Directive Resuscitation Status: Full Code Family History Family History: DM, Other - Alzheimer's disease, kidney disease. denies: CAD, Hypertension, Malignancy Parental Family History Reviewed: Yes Children Family History Reviewed: Yes Sibling(s) Family History Reviewed.: Yes Medication/Allergy Home Medications: Allopurinol [Zyloprim 300 mg Tablet] 100 mg PO DAILY 08/24/11 Aspirin [Ecotrin 81 mg EC Tablet] 81 mg PO DAILY 08/24/11 Metformin HCl [Glucophage 1000 mg Tablet] 500 mg PO BID 08/24/11 Valsartan [Diovan 80 mg Tablet] 320 mg PO DAILY 08/24/11 Atorvastatin Calcium [Lipitor 40 mg Tablet] 1.5 tab PO QHS 03/05/13 Nifedipine [Nifedipine ER] 60 mg PO DAILY 03/05/13 Multivitamin [Multivitamins] 1 tab PO DAILY 08/22/16 Cholecalciferol (Vitamin D3) [Vitamin D3] 1,000 unit PO DAILY 08/23/16 Tadalafil [Cialis] 5 mg PO ASDIR PRN 08/23/16 Tamsulosin HCl 0.4 mg PO DAILY 08/23/16 Vitamin B Complex 1 each PO DAILY 08/23/16 Methocarbamol [Robaxin 500 mg Tablet] 500 mg PO TID PRN 06/13/19 Omeprazole 20 mg PO DAILY 06/13/19 Allergies/Adverse Reactions: No Known Allergies Allergy (Verified 06/13/19 15:37) Physical Exam Vital Signs: Temp Pulse Resp BP Pulse Ox 98.2 F 48 L 18 139/64 H 100 06/13/19 23:44 06/14/19 02:00 06/13/19 23:44 06/13/19 23:44 06/13/19 23:44 Intake & Output 06/12/19 06/13/19 06/14/19 06:59 06:59 06:59 Intake Total 1000 Balance 1000 Weight 74.9 kg Results Laboratory Results: 06/13/19 15:50 06/13/19 18:50 06/13/19 06/13/19 06/13/19 15:50 15:50 18:50 WBC 3.9 L RBC 4.05 L Hgb 12.8 L Hct 35.4 L MCV 87 MCH 31.6 MCHC 36.2 H RDW 13.3 Plt Count 220 Seg Neutrophils % 57.9 Sodium 134.6 L 135.7 L Potassium 5.4 H 5.3 H Chloride 101 104 Carbon Dioxide 27 26 Anion Gap 7 6 BUN 15 15 Creatinine 0.92 0.89 Est GFR ( Amer) > 60 > 60 Glucose 111 H 113 H Calcium 10.1 10.0 Total Bilirubin 0.5 AST 29 Alkaline Phosphatase 57 Total Protein 7.9 Albumin 4.6 06/13/19 06/13/19 06/13/19 15:50 18:50 21:46 Creatine Kinase 148 CK-MB (CK-2) Troponin I < 0.012 0.018 06/13/19 06/14/19 06/14/19 21:46 04:06 04:06 Creatine Kinase 120 CK-MB (CK-2) 0.95 0.88 Troponin I < 0.012 < 0.012 Impressions: Chest X-Ray 06/13/19 15:38 IMPRESSION: NO ACUTE RADIOGRAPHIC FINDING IN THE CHEST. 06/13/19 15:50 06/13/19 18:50 MCV 87 fl (80-97) 06/13/19 15:50 MCH 31.6 pg (27.0-33.4) 06/13/19 15:50 MCHC 36.2 g/dL (32.0-36.0) H 06/13/19 15:50 RDW 13.3 % (11.5-14.0) 06/13/19 15:50 Seg Neutrophils % 57.9 % (42-78) 06/13/19 15:50 Chloride 104 mmol/L (98-107) 06/13/19 18:50 Carbon Dioxide 26 mmol/L (22-30) 06/13/19 18:50 Anion Gap 6 (5-19) 06/13/19 18:50 Est GFR ( Amer) > 60 (>60) 06/13/19 18:50 Glucose 113 mg/dL (75-110) H 06/13/19 18:50 Calcium 10.0 mg/dL (8.4-10.2) 06/13/19 18:50 Total Bilirubin 0.5 mg/dL (0.2-1.3) 06/13/19 15:50 AST 29 U/L (17-59) 06/13/19 15:50 Alkaline Phosphatase 57 U/L (38-126) 06/13/19 15:50 Total Protein 7.9 g/dL (6.3-8.2) 06/13/19 15:50 Albumin 4.6 g/dL (3.5-5.0) 06/13/19 15:50 06/13/19 06/13/19 06/13/19 15:50 18:50 21:46 Creatine Kinase 148 CK-MB (CK-2) Troponin I < 0.012 0.018 06/13/19 06/14/19 06/14/19 21:46 04:06 04:06 Creatine Kinase 120 CK-MB (CK-2) 0.95 0.88 Troponin I < 0.012 < 0.012 Current Medication List Generic Name Dose Route Start Last Admin Trade Name Freq PRN Reason Stop Dose Admin Acetaminophen 650 mg 06/13/19 21:19 Tylenol 325 Mg Tablet PO 07/13/19 21:18 Q4HP PRN For headache, pain or fever Al Hydrox/Mg Hydrox/Simethicone 30 ml 06/13/19 21:14 Maalox Plus Susp 30 Udcup PO 07/13/19 21:13 Q6HP PRN HEARTBURN Dextrose 12.5 gm 06/13/19 21:19 Dextrose Inj 50% Syringe (25 Gm/50 Ml) IV 07/13/19 21:18 PRN PRN FOR BG 50-69 IN ALERT PATIENT Protocol Dextrose 25 gm 06/13/19 21:19 Dextrose Inj 50% Syringe (25 Gm/50 Ml) IV 07/13/19 21:18 PRN PRN PER PROTOCOL Protocol Docusate Sodium 100 mg 06/14/19 10:00 Colace 100 Mg Capsule PO 07/14/19 09:59 BID JENNIFER Glucagon 1 mg 06/13/19 21:19 Glucagen Inj 1 Mg Vial IM 07/13/19 21:18 PRN PRN Evaluate for BG < 70 Protocol Glucose 15 gm 06/13/19 21:19 Glutose 40% Gel 15 Gm Tube PO 07/13/19 21:18 PRN PRN FOR BG 50-69 IN ALERT PATIENT Protocol Glucose 30 gm 06/13/19 21:19 Glutose 40% Gel 15 Gm Tube PO 07/13/19 21:18 PRN PRN FOR BG < 50 IN ALERT PATIENT Protocol Heparin Sodium (Porcine) 5,000 unit 06/13/19 22:00 06/14/19 05:58 Heparin Inj 5,000 Units/Ml 1 Ml Vial SUBCUT 07/13/19 21:59 Not Given Q8 [facility] Hydralazine HCl 20 mg 06/13/19 21:19 Apresoline Inj/Pf 20 Mg/1 Ml Sdv IV 07/13/19 21:18 Q4HP PRN Give For Sbp > 160 / Dbp > 100 Insulin Human Regular 0 - 12 unit 06/13/19 22:00 06/13/19 22:01 Humulin R (Pyxis) Insulin 100 Unit/Ml 3ml SUBCUT 07/13/19 21:59 Not Given ACHS [facility] Protocol Magnesium Hydroxide 30 ml 06/13/19 21:14 Milk Of Magnesia 30 Ml Udcup PO 07/13/19 21:13 DAILYP PRN FOR CONSTIPATION Morphine Sulfate 2 mg 06/13/19 21:55 Morphine 10 Mg/Ml Inj IV 06/20/19 21:54 Q2HP PRN FOR CHEST PAIN Ondansetron HCl 4 mg 06/13/19 21:14 Zofran Inj/Pf 4 Mg/2 Ml Sdv IV 07/13/19 21:13 Q4HP PRN FOR NAUSEA/VOMITING Pantoprazole Sodium 40 mg 06/14/19 06:00 06/14/19 05:[address] Tablet PO 07/14/19 05:59 Not Given Q6AM JENNIFER Sodium Chloride 2.5 ml 06/13/19 22:00 06/14/19 05:58 Saline Flush 2.5 Ml Monoject Prefil Syrin IV 07/13/19 21:59 Not Given Q8 JENNIFER Discontinued Medications Generic Name Dose Route Start Last Admin Trade Name Melody PRN Reason Stop Dose Admin Calcium Gluconate 1,000 mg 06/13/19 18:20 06/13/19 18:34 Calcium Gluconate Inj 1000 Mg/10 Ml IV 06/13/19 18:21 1,000 mg NOW ONE Administration Dextrose 50 gm 06/13/19 18:20 06/13/19 18:35 Dextrose Inj 50% Syringe (25 Gm/50 Ml) IV 06/13/19 18:21 50 gm NOW ONE Administration Sodium Chloride 1,000 mls @ 0 mls/hr 06/13/19 18:22 06/13/19 19:36 Nacl 0.9% 1000 Ml Iv Soln IV 06/13/19 18:23 Infused BOLUS ONE Infusion Wide Open Insulin Human Regular 10 unit 06/13/19 18:20 06/13/19 18:34 Humulin R (Pyxis) Insulin 100 Unit/Ml 3ml IV 06/13/19 18:21 10 unit NOW ONE Administration Assessment & Plan - Diagnosis (1) Chest pain Qualifiers: Chest pain type: unspecified Qualified Code(s): R07.9 - Chest pain, unspecified Is this a current diagnosis for this admission?: Yes Plan: The patient has remained absolutely asymptomatic during this admission and with normal cardiac troponins. He already follows up with a apartment maintenance worker, Dr. Stack at [facility]. The patient tells me this morning that he j ust had a stress test approximately 6 months ago and was told that it was normal. Recommendations: -No further ischemic work-up indicated at this point. -Continue with outpatient medical regimen. -The patient was advised to call Dr. Stack to arrange for follow-up. -The patient may be discharged home from the cardiovascular standpoint. (2) Hypertension Qualifiers: Hypertension type: essential hypertension Qualified Code(s): I10 - Essential (primary) hypertension Is this a current diagnosis for this admission?: Yes Plan: His blood pressure is acceptable for the time being. Recommendations: -Continue with outpatient medical management. -Follow-up with his apartment maintenance worker, Dr. Stack. (3) Hyperlipidemia Qualifiers: Hyperlipidemia type: unspecified Qualified Code(s): E78.5 - Hyperlipidemia, unspecified Is this a current diagnosis for this admission?: Yes Plan: The patient states that he is on statin therapy as an outpatient but does not remember what medication or what dose. Recommendations: -Continue with outpatient medical regimen. -Follow-up with primary care provider and/or his apartment maintenance worker, Dr. Stack.
[2019-06-14] MEDS: INSULIN REG, HUMAN 100 UNIT/ML 3 ML VIAL (PYX) SUBCUT SCH ×2 (08:27→11:14)
[2019-06-14] MEDS ORDERED: DOCUSATE SODIUM 100 MG CAPSULE PO SCH (10:00)
[2019-06-14 10:19] LABS: CREATINE KINASE MB 0.66 ng/mL (<4.55)
[2019-06-14 10:24] LABS: TROPONIN I < 0.012 ng/mL
[2019-06-14 12:39] VITALS: BP 142/63
--- NOTE | 2019-06-14 13:51 | PDOC DISCHARGE SUMMARY ---
Impression - Admit/DC Date/PCP Admission Date/Primary Care Provider: 06/13/19 20:17 [facility] Discharge Date: 06/14/19 - Assessment Summary: Patient will be admitted to observation status on the medical floor in a telemetry bed. He will receive routine supportive and symptomatic cares. Dr. Mullen will be consulted for cardiac evaluation. Serial cardiac enzymes will be performed. Patient will be continued on his usual home medications, as appropriate, as soon as his medication list can be verified and reconciled. Before meals and at bedtime Accu-Cheks to be performed with sliding scale insulin used to cover hyperglycemia and a hypoglycemic protocol in place. A cardiac and diabetic restricted diet will be provided. Patient will use morphine sulfate 2 mg IV every 2 hours as needed for chest pain. - Additional Information Resuscitation Status: Full Code Discharge Diet: Cardiac, Diabetic Discharge Activity: Activity As Tolerated Referrals: [facility] [Primary [facility]] - Follow up as needed Home Medications: Allopurinol [Zyloprim 300 mg Tablet] 100 mg PO DAILY 08/24/11 Aspirin [Ecotrin 81 mg EC Tablet] 81 mg PO DAILY 08/24/11 Metformin HCl [Glucophage 1000 mg Tablet] 500 mg PO BID 08/24/11 Valsartan [Diovan 80 mg Tablet] 320 mg PO DAILY 08/24/11 Atorvastatin Calcium [Lipitor 40 mg Tablet] 1.5 tab PO QHS 03/05/13 Nifedipine [Nifedipine ER] 60 mg PO DAILY 03/05/13 Multivitamin [Multivitamins] 1 tab PO DAILY 08/22/16 Cholecalciferol (Vitamin D3) [Vitamin D3] 1,000 unit PO DAILY 08/23/16 Tadalafil [Cialis] 5 mg PO ASDIR PRN 08/23/16 Tamsulosin HCl 0.4 mg PO DAILY 08/23/16 Vitamin B Complex 1 each PO DAILY 08/23/16 Methocarbamol [Robaxin 500 mg Tablet] 500 mg PO TID PRN 06/13/19 Omeprazole 20 mg PO DAILY 06/13/19 History of Present Illiness History of Present Illness: PER H&P: "VALERIE BREWSTER SR is a 78 year old male who presented to the emergency room with acute chest pain. Patient admits that as he was completing a 3 mile walk this afternoon, he experienced a sudden sharp pain in his left upper chest, without radiation, lasting for less than 1 second and resolving spontaneously without further recurrence. He denies any associated or accompanying signs and symptoms. He denies prior similar episodes. He has not identified any aggravating or ameliorating factors for his chest pain. In the emergency room he was found to have an unremarkable evaluation but at the suggestion of Dr. Mullen patient is admitted observation status for further evaluation." Hospital Course Hospital Course: Patient admitted for chest pain and mildly elevated troponin, follow-up troponins have been negative x2. Cardiology was consulted and they stated patient does not require any further inpatient work-up for his chest pain. He had a stress test approximately 6 months prior that patient states was normal. Chest pain completely resolved soon after admission. Patient followed by Dr. 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 He also follow-up with his PCP within 1 week. Patient voiced understanding that if he has any further chest pain he will return to the hospital for further evaluation. Per cardiology, cleared for discharge. Patient in full agreement wants to be discharged promptly, states he feels very well overall Physical Exam Vital Signs: Temp Pulse Resp BP Pulse Ox 97.8 F 50 L 18 142/63 H 100 06/14/19 12:00 06/14/19 12:00 06/14/19 12:00 06/14/19 12:00 06/14/19 12:00 Intake & Output 06/13/19 06/14/19 06/15/19 06:59 06:59 06:59 Intake Total 1000 500 Balance 1000 500 Weight 74.9 kg General appearance: PRESENT: no acute distress, well-developed, well-nourished Head exam: PRESENT: atraumatic, normocephalic Eye exam: PRESENT: conjunctiva pink Mouth exam: PRESENT: moist Respiratory exam: PRESENT: clear to auscultation judy. ABSENT: rales, rhonchi, wheezes Cardiovascular exam: PRESENT: RRR. ABSENT: diastolic murmur, rubs, systolic murmur GI/Abdominal exam: PRESENT: normal bowel sounds, soft. ABSENT: distended, guarding, mass, organolmegaly, rebound, tenderness Rectal exam: PRESENT: deferred Neurological exam: PRESENT: alert, awake, oriented to person, oriented to place, oriented to time, oriented to situation Psychiatric exam: PRESENT: appropriate affect, normal mood Skin exam: PRESENT: dry, intact, warm Results Laboratory Results: WBC 3.9 10^3/uL (4.0-10.5) L 06/13/19 15:50 RBC 4.05 10^6/uL (4.35-5.55) L 06/13/19 15:50 Hgb 12.8 g/dL (13.5-17.0) L 06/13/19 15:50 Hct 35.4 % (37.9-51.0) L 06/13/19 15:50 MCV 87 fl (80-97) 06/13/19 15:50 MCH 31.6 pg (27.0-33.4) 06/13/19 15:50 MCHC 36.2 g/dL (32.0-36.0) H 06/13/19 15:50 RDW 13.3 % (11.5-14.0) 06/13/19 15:50 Plt Count 220 10^3/uL (150-450) 06/13/19 15:50 Lymph % (Auto) 30.7 % (13-45) 06/13/19 15:50 [place] % (Auto) 9.1 % (3-13) 06/13/19 15:50 Eos % (Auto) 1.7 % (0-6) 06/13/19 15:50 Baso % (Auto) 0.6 % (0-2) 06/13/19 15:50 Absolute Neuts (auto) 2.3 10^3/uL (1.7-8.2) 06/13/19 15:50 Absolute Lymphs (auto) 1.2 10^3/uL (0.5-4.7) 06/13/19 15:50 Absolute Monos (auto) 0.4 10^3/uL (0.1-1.4) 06/13/19 15:50 Absolute Eos (auto) 0.1 10^3/uL (0.0-0.6) 06/13/19 15:50 Absolute Basos (auto) 0.0 10^3/uL (0.0-0.2) 06/13/19 15:50 Seg Neutrophils % 57.9 % (42-78) 06/13/19 15:50 Sodium 135.7 mmol/L (137-145) L 06/13/19 18:50 Potassium 5.3 mmol/L (3.6-5.0) H 06/13/19 18:50 Chloride 104 mmol/L (98-107) 06/13/19 18:50 Carbon Dioxide 26 mmol/L (22-30) 06/13/19 18:50 Anion Gap 6 (5-19) 06/13/19 18:50 BUN 15 mg/dL (7-20) 06/13/19 18:50 Creatinine 0.89 mg/dL (0.52-1.25) 06/13/19 18:50 Est GFR ( Amer) > 60 (>60) 06/13/19 18:50 Est GFR (MDRD) Non-Af > 60 (>60) 06/13/19 18:50 Glucose 113 mg/dL (75-110) H 06/13/19 18:50 POC Glucose 116 mg/dL (70-110) H 06/14/19 10:58 Calcium 10.0 mg/dL (8.4-10.2) 06/13/19 18:50 Total Bilirubin 0.5 mg/dL (0.2-1.3) 06/13/19 15:50 Direct Bilirubin 0.1 mg/dL (0.0-0.4) 06/13/19 15:50 Neonat Total Bilirubin Not Reportable 06/13/19 15:50 Neonat Direct Bilirubin Not Reportable 06/13/19 15:50 Neonat Indirect Bili Not Reportable 06/13/19 15:50 AST 29 U/L (17-59) 06/13/19 15:50 ALT 21 U/L (<50) 06/13/19 15:50 Alkaline Phosphatase 57 U/L (38-126) 06/13/19 15:50 Creatine Kinase 142 U/L (55-170) 06/14/19 09:20 CK-MB (CK-2) 0.66 ng/mL (<4.55) 06/14/19 09:20 Troponin I < 0.012 ng/mL 06/14/19 09:20 Total Protein 7.9 g/dL (6.3-8.2) 06/13/19 15:50 Albumin 4.6 g/dL (3.5-5.0) 06/13/19 15:50 04/05/2906/13/19 06/13/19 15:50 18:50 21:46 CK-MB (CK-2) 0.95 Troponin I < 0.012 0.018 < 0.012 06/14/19 06/14/19 04:06 09:20 CK-MB (CK-2) 0.88 0.66 Troponin I < 0.012 < 0.012 Impressions: Chest X-Ray 06/13/19 15:38 IMPRESSION: NO ACUTE RADIOGRAPHIC FINDING IN THE CHEST. Plan Time Spent: Greater than 30 Minutes Stroke Is this a Stroke Patient?: No Acute Heart Failure - Is this a Heart Failure Patient?: No
--- NOTE | 2019-06-15 10:44 | EKG REPORT ---
SEVERITY:- ABNORMAL ECG - SINUS RHYTHM LEFT VENTRICULAR HYPERTROPHY : Confirmed by: Joesph Herzog 15-Jun-2019 10:44:04
== END 2019-06-14 13:32 | disposition home or self-care (01) ==
LOC: ER 15:22 → EH 20:17 → 4N 21:30
PROVIDERS: ADMIT Emergency Medicine; ATTEND Emergency Medicine
DX: R07.9 Chest pain, unspecified (principal); E87.5 Hyperkalemia; E11.9 Type 2 diabetes mellitus without complications; E78.5 Hyperlipidemia, unspecified; I10 Essential (primary) hypertension; R79.89 Other specified abnormal findings of blood chemistry; R94.31 Abnormal electrocardiogram [ECG] [EKG]; N40.0 Benign prostatic hyperplasia without lower urinary tract symptoms; I25.10 Atherosclerotic heart disease of native coronary artery without angina pectoris; M10.9 Gout, unspecified; N52.9 Male erectile dysfunction, unspecified; M19.90 Unspecified osteoarthritis, unspecified site; Z79.899 Other long term (current) drug therapy; Z79.82 Long term (current) use of aspirin; Z85.46 Personal history of malignant neoplasm of prostate; Z87.891 Personal history of nicotine dependence; Z79.84 Long term (current) use of oral hypoglycemic drugs
CPT/HCPCS: 93005; 99285; 96361; 96374; 96375; 36415 ×2; 82553 ×2; 82962 ×2; 82550 ×2; 85025; 80053; 84484 ×2; 71045; 93010; J0610; J1644; J3490 ×2; J1815; J7030; G0378